=== PATIENT | female | born 1985 | race Caucasian/White ===

== ENCOUNTER 2017-01-27 02:21 | Emergency (ER) | payer SELFPAY ==
[2017-01-27 02:48] VITALS: BP 118/78; PULSE 66; TEMP 98.6; BMI 34.0
--- NOTE | 2017-01-27 04:02 | PDOC ---
History of Present Illness - General Chief Complaint: Pain Stated Complaint: RI SIDED MAMMARY PAIN Time Seen by Provider: 01/27/17 03:06 Past History - Past Medical History Allergies/Adverse Reactions: Allergies Allergy/AdvReac Type Severity Reaction Status Date / Time No Known Allergies Allergy Verified 01/27/17 02:46 Home Medications: Ambulatory Orders Cephalexin Monohydrate [Keflex -] 500 mg PO BID #14 capsule 01/27/17 Sulfamethoxazole/Trimethoprim [Bactrim Ds -] 1 tab PO BID #14 tablet 01/27/17 - Suicide/Smoking/Psychosocial Hx Smoking History: Never smoked Have you smoked in the past 12 months: No Information on smoking cessation initiated: No Hx Alcohol Use: No Drug/Substance Use Hx: No *Physical Exam - Vital Signs Last Vital Signs Temp Pulse Resp BP Pulse Ox 98.6 F 66 20 118/78 100 01/27/17 02:46 01/27/17 02:46 01/27/17 02:46 01/27/17 02:46 01/27/17 02:46 *DC/Admit/Observation/Transfer Diagnosis at time of Disposition: Abscess - Discharge Dispostion Disposition: HOME Condition at time of disposition: Stable Admit: No - Referrals Referrals: Marzena Kelly MD [Staff Physician] - Janki Parker DO [Staff Physician] - - Patient Instructions Printed Discharge Instructions: DI for Skin Abscess Additional Instructions: You have an early abscess in your breast. Please take the antibiotics as prescribed. You may soak the area to help with the pain. You may take Tylenol or Motrin as needed for pain. Please follow up with [facility] within the week for follow up. Return to the ED if the pain gets worse, if you have fevers, chills, or any changes in your symptoms. Usted tiene un absceso temprano en peck seno. Por favor tome los antibiticos seg n lo prescrito. Le prescribieron bactrim y keflex. Puede empapar el bobbi para ayudar con el dolor. Puede sara Tylenol o Motrin segn sea necesario para el dolor. Por favor, batool un seguimiento con OB / MEDICAL CLAIMS MANAGER dentro de la semana para el seguimiento. Regrese al departamento de emergencias si el dolor empeora, si tiene fiebre, escalofros o cualquier cambio en barbie sntomas. Print Language: LITHUANIAN - Post Discharge Activity
== END 2017-01-27 04:26 | disposition home or self-care (01) ==
LOC: JER 02:21
DX: N61.1 Abscess of the breast and nipple (principal)
CPT/HCPCS: 99281-25

== ENCOUNTER 2019-01-14 18:40 | Emergency (ER) | payer OTHER ==
--- NOTE | 2019-01-14 19:01 | PDOC ---
Rapid Medical Evaluation Chief Complaint: Vaginal Bleeding Time Seen by Provider: 01/14/19 18:58 Medical Evaluation: Allergies Allergy/AdvReac Type Severity Reaction Status Date / Time No Known Allergies Allergy Verified 01/27/17 02:46 01/14/19 18:58 I have performed a brief in-person evaluation of this patient. The patient presents with a chief complaint of: LMP 11/17 present with complains of vaginal bleeding since today soaking 3 pads. pt had preg test done at PCP a week ago which was positive. pt does not know how far is the Pertinent physical exam findings: A&O x 3 in NAD I have ordered the following: CBC, Beta hcg, T&S The patient will proceed to the ED for further evaluation Discharge Disposition - Diagnosis Vaginal bleeding - Discharge Dispostion Condition at time of disposition: Stable - Referrals - Patient Instructions - Post Discharge Activity
[2019-01-14 19:02] VITALS: BP 123/50; PULSE 78; TEMP 98.5; BMI 34.9
[2019-01-14 19:44] LABS: BASO % 0.8 % (0-2.0); HEMATOCRIT 37.8 % (32.4-45.2); HEMOGLOBIN 12.4 GM/dL (10.7-15.3); LYMPH % 19.1 % (8-40); MCH 27.6 pg (25.7-33.7); MCHC 32.9 g/dl (32.0-36.0); MEAN PLT VOLUME 7.3 fl (7.5-11.1); MONO % 4.8 % (3.8-10.2); NEUT % 74.3 % (42.8-82.8); PLATELET COUNT 395 K/MM3 (134-434); RDW 13.4 % (11.6-15.6); WHITE BLOOD COUNT 12.6 K/mm3 (4.0-10.0)
[2019-01-14 20:46] LABS: BILIRUBIN,TOTAL 0.1 mg/dL (0.2-1); BLOOD UREA NITROGEN 10.7 mg/dL (7-18); CALCIUM 8.5 mg/dL (8.5-10.1); CREATININE 0.7 mg/dL (0.55-1.3); TOT PROT 7.2 g/dl (6.4-8.2)
[2019-01-14 20:51] LABS: EPI CELLS 10.4 /HPF (0-5/HPF); HYALINE CASTS 18 /lpf (0-8); URINE APPEARANCE CLEAR; URINE BACTERIA 539.3 /hpf (NEGATIVE); URINE BILIRUBIN NEGATIVE (NEGATIVE); URINE COLOR YELLOW; URINE GLUCOSE (UA) NEGATIVE (NEGATIVE); URINE KETONE NEGATIVE (NEGATIVE); URINE LEUK ESTERASE 1+ (NEGATIVE); URINE NITRITE NEGATIVE (NEGATIVE); URINE PROTEIN 1+ (NEGATIVE); URINE RBC 90 /hpf (0-4); URINE WBC 62 /hpf (0-5)
--- NOTE | 2019-01-14 20:58 | PDOC ---
Documentation entered by Doc George SCRIBE, acting as scribe for Rose Alvarenga MD. Rose Alvarenga MD: This documentation has been prepared by the Ariel luciano Daniel, SCRIBE, under my direction and personally reviewed by me in its entirety. I confirm that the documentation accurately reflects all work, treatment, procedures, and medical decision making performed by me. History of Present Illness - General Chief Complaint: Vaginal Bleeding Stated Complaint: 4WKS BLEEDING Time Seen by Provider: 01/14/19 18:58 History Source: Patient Exam Limitations: No Limitations - History of Present Illness Initial Comments: 01/14/19 20:40 The patient is a 33 year old female with no past medical history here today for evaluation of suprapubic pain and vaginal bleeding. The patient reports that her suprapubic pain and vaginal bleeding began today. She describes her suprapubic pain as cramping and states that she has gone through 3 pads today. Patient states that she is and that her LMP was in 11/23. Patient denies headache, lightheadedness. Denies fever, chills. Denies chest pain, shortness of breath. Denies nausea, vomiting, diarrhea. Allergies: NKA Surgical history: none Past History - Past Medical History Allergies/Adverse Reactions: Allergies Allergy/AdvReac Type Severity Reaction Status Date / Time No Known Allergies Allergy Verified 01/14/19 19:01 Home Medications: Ambulatory Orders Cephalexin Monohydrate [Keflex -] 500 mg PO BID #10 capsule MDD 2 tabs 01/14/19 COPD: No - Immunization History Immunization Up to Date: Yes - Psycho Social/Smoking Cessation Hx Smoking History: Never smoked Have you smoked in the past 12 months: No Information on smoking cessation initiated: No Hx Alcohol Use: No Drug/Substance Use Hx: No Review of Systems - Review of Systems Able to Perform ROS?: Yes Comments:: 01/14/19 20:40 CONSTITUTIONAL: Absent: fever, chills, diaphoresis, generalized weakness, malaise, loss of appetite HEENT: Absent: rhinorrhea, nasal congestion, throat pain, throat swelling, difficulty swallowing, mouth swelling, ear pain, eye pain, visual Changes CARDIOVASCULAR: Absent: chest pain, syncope, palpitations, irregular heart rate, lightheadedness , peripheral edema RESPIRATORY: Absent: cough, shortness of breath, dyspnea with exertion, orthopnea, wheezing, stridor, hemoptysis GASTROINTESTINAL: +suprapubic pain. Absent: abdominal distension, nausea, vomiting, diarrhea, constipation, melena, hematochezia GENITOURINARY: +vaginal bleeding. Absent: dysuria, frequency, urgency, hesitancy, hematuria, flank pain, genital pain MUSCULOSKELETAL: Absent: myalgia, arthralgia, joint swelling SKIN: Absent: rash, itching, pallor HEMATOLOGIC/IMMUNOLOGIC: Absent: easy bleeding, easy bruising, lymphadenopathy, frequent infections ENDOCRINE: Absent: unexplained weight gain, unexplained weight loss, heat intolerance, cold intolerance NEUROLOGIC: Absent: headache, focal weakness or paresthesias, dizziness, unsteady gait, seizure, mental status changes, bladder or bowel incontinence PSYCHIATRIC: Absent: anxiety, depression, suicidal or homicidal ideation, hallucinations. *Physical Exam - Vital Signs Last Vital Signs Temp Pulse Resp BP Pulse Ox 98.5 F 78 17 123/50 L 99 01/14/19 18:57 01/14/19 18:57 01/14/19 18:57 01/14/19 18:57 01/14/19 18:57 - Physical Exam 01/14/19 20:41 GENERAL: Well developed, well nourished. Awake and alert. No acute distress. HEENT: Normocephalic, atraumatic. PERRLA, EOMI. No conjunctival pallor. Sclera are non- icteric. Moist mucous membranes. Oropharynx is clear. NECK: Supple. Full ROM. No JVD. Carotid pulses 2+ and symmetric, without bruits. No thyromegaly. No lymphadenopathy. CARDIOVASCULAR: Regular rate and rhythm. No murmurs, rubs, or gallops. Distal pulses are 2+ and symmetric. PULMONARY: No evidence of respiratory distress. Lungs clear to auscultation bilaterally. No wheezing, rales or rhonchi. ABDOMINAL: Soft. Non-tender. Non-distended. No rebound or guarding. No organomegaly. Normoactive bowel sounds. MUSCULOSKELETAL Normal range of motion at all joints. No bony deformities or tenderness. No CVA tenderness. EXTREMITIES: No cyanosis. No clubbing. No edema. No calf tenderness. SKIN: Warm and dry. Normal capillary refill. No rashes. No jaundice. NEUROLOGICAL: Alert, awake, appropriate. Cranial nerves 2-12 intact. No deficits to light touch and temperature in face, upper extremities and lower extremities. No motor deficits in the in face, upper extremities and lower extremities. Normoreflexic in the upper and lower extremities. Normal speech. Toes are down- going bilaterally. Gait is normal without ataxia. PSYCHIATRIC: Cooperative. Good eye contact. Appropriate mood and affect. ED Treatment Course - LABORATORY CBC & Chemistry Diagram: 01/14/19 19:30 01/14/19 19:30 - ADDITIONAL ORDERS Additional order review: 01/14/19 19:30 RBC 4.50 MCV 84.0 MCHC 32.9 RDW 13.4 MPV 7.3 L Neutrophils % 74.3 Lymphocytes % 19.1 Monocytes % 4.8 Eosinophils % 1.0 Basophils % 0.8 - RADIOLOGY Radiology Studies Ordered: Category Date Time Status TRANSVAGINAL US PREG [US] Stat Ultrasound 01/14/19 20:43 Ordered Medical Decision Making - Medical Decision Making 01/14/19 20:43 33-year-old female 5 para 3 1 miscarriage presents the pelvic cramping Last LMP in November 2018 [facility] at [address] [place] [id number]. Past surgical history none 01/14/19 20:57 Plan beta-hCG, CBC, type and screen, pelvic ultrasound CBC is unremarkable Beta-hCG is above 7000 01/14/19 21:16 Blood type is A+ Discharge - Discharge Information Problems reviewed: Yes Clinical Impression/Diagnosis: Vaginal bleeding, Threatened Qualifiers: Weeks of gestation: less than 8 weeks Qualified Code(s): Z3A.01 - Less than 8 weeks gestation of Condition: Stable Disposition: HOME - Additional Discharge Information Prescriptions: Cephalexin Monohydrate [Keflex -] 500 mg PO BID #10 capsule MDD 2 tabs - Follow up/Referral - Patient Discharge Instructions Patient Printed Discharge Instructions: DI for Vaginal Bleeding During Additional Instructions: Please keep your appointment with your EDUCATIONAL AIDE You will need a repeat beta-hCG in 48 hours and a repeat ultrasound - Post Discharge Activity
[2019-01-14] MEDS ORDERED: CEPHALEXIN MONOHYDRATE 500 MG CAPSULE (UD) PO STA (21:41)
[2019-01-14] MEDS ORDERED: CEPHALEXIN MONOHYDRATE 500 MG CAPSULE (UD) PO ONE (21:53)
[2019-01-14] MEDS ORDERED: CEPHALEXIN MONOHYDRATE 500 MG CAPSULE (UD) ONE (21:53)
== END 2019-01-14 22:01 | disposition home or self-care (01) ==
LOC: JER 18:40
DX: O26.891 Other specified pregnancy related conditions, first trimester (principal); O20.0 Threatened abortion; Z3A.01 Less than 8 weeks gestation of pregnancy
CPT/HCPCS: 36415; 76817-TC; 80053; 81003; 84702; 85025; 86850; 86900; 86901; 99282-25